=== PATIENT | female | born 1950 | race Hispanic/Latino ===

== ENCOUNTER → 2017-11-14 | Outpatient (CLI) | payer SELFPAY ==
[~2017-11-14] MED LIST: AEC81 PO; ALEN70TA47 PO; HYDR12.54 PO; LEVO125T11 PO; LISI40TA4 PO; PRAV20TA4 PO
== END | disposition home or self-care (01) ==
LOC: OIH 14:19
PROVIDERS: ATTEND Internal Medicine Cardiovascular Disease
DX: Z13.6 Encounter for screening for cardiovascular disorders (principal)
CPT/HCPCS: 75571

== ENCOUNTER → 2017-11-23 | Outpatient (CLI) | payer OTHER | END | disposition home or self-care (01) | LOC: EDUNIT# 09:30 → SHCH 10:03 | PROVIDERS: ATTEND Internal Medicine Cardiovascular Disease | DX: I10 Essential (primary) hypertension (principal); E78.5 Hyperlipidemia, unspecified | CPT/HCPCS: 93306 ==

== ENCOUNTER 2017-12-19 07:14 | Day surgery (SDC) | payer OTHER ==
[~2017-12-19] VITALS: Ht 149.9 cm; Wt 104.6 kg
[~2017-12-19 07:14] MED LIST changes: -AEC81 PO; -ALEN70TA47 PO; -HYDR12.54 PO; -LEVO125T11 PO; -LISI40TA4 PO; -PRAV20TA4 PO; +SODIUM CHLORIDE 0.9% 1000ML 1,000 ML IV ONE
[2017-12-19 07:21] VITALS: BP 143/76
[2017-12-19] MEDS ORDERED: ALEN70TA47 PO (08:15)
[2017-12-19] MEDS ORDERED: LEVO125T11 PO (08:15)
[2017-12-19] MEDS ORDERED: PRAV20TA4 PO (08:15)
[2017-12-19] MEDS ORDERED: HYDR12.54 PO (08:15)
[2017-12-19] MEDS ORDERED: LISI40TA4 PO (08:15)
[2017-12-19] MEDS ORDERED: AEC81 PO (08:15)
[2017-12-19] MEDS ORDERED: PROPOFOL 10 MG/ML 20ML VIAL IV ONE ×2 (08:32→08:33)
[2017-12-19] MEDS ORDERED: PHENYLEPHRINE HCL 10 MG/ML 1ML VIAL IV ONE (08:49)
[2017-12-19 08:54] VITALS: BP 99/52
== END 2017-12-19 09:21 | disposition home or self-care (01) ==
LOC: DAH 07:14
PROVIDERS: ATTEND Internal Medicine Gastroenterology
DX: Z12.11 Encounter for screening for malignant neoplasm of colon (principal); D12.3 Benign neoplasm of transverse colon; I10 Essential (primary) hypertension; Z79.899 Other long term (current) drug therapy; E78.4 Other hyperlipidemia; E03.8 Other specified hypothyroidism; F32.89 Other specified depressive episodes; Z90.49 Acquired absence of other specified parts of digestive tract
CPT/HCPCS: 45380; 88305; 93005; A4606; J2370; J2704 ×2; J7030

== ENCOUNTER → 2018-01-01 | Outpatient (CLI) | payer OTHER ==
[~2018-01-01] MED LIST changes: +AEC81 PO; +ALEN70TA47 PO; +HYDR12.54 PO; +LEVO125T11 PO; +LISI40TA4 PO; +PRAV20TA4 PO; -SODIUM CHLORIDE 0.9% 1000ML 1,000 ML IV ONE
== END | disposition home or self-care (01) ==
LOC: RAH 15:13
PROVIDERS: ATTEND Internal Medicine
DX: M79.641 Pain in right hand (principal); W54.0XXA Bitten by dog, initial encounter; Y93.89 Activity, other specified; Y92.89 Other specified places as the place of occurrence of the external cause; Y99.8 Other external cause status
CPT/HCPCS: 73130

== ENCOUNTER → 2020-01-29 | Outpatient (CLI) | payer OTHER ==
[~2020-01-29] MED LIST changes: +ACET1TAB12 PO; -AEC81 PO; -ALEN70TA47 PO
== END | disposition home or self-care (01) ==
LOC: SHCH 08:26
PROVIDERS: ATTEND Internal Medicine Cardiovascular Disease
DX: I87.2 Venous insufficiency (chronic) (peripheral) (principal)
CPT/HCPCS: 93970

== ENCOUNTER → 2020-08-04 | Outpatient (CLI) | payer OTHER | END | disposition home or self-care (01) | LOC: OIH 13:38 | PROVIDERS: ATTEND Nurse Practitioner Family | DX: M54.5 Low back pain (principal) | CPT/HCPCS: 72100; 72220 ==

== ENCOUNTER → 2020-08-05 | Outpatient (CLI) | payer OTHER | END | disposition home or self-care (01) | LOC: RAH 10:56 | PROVIDERS: ATTEND Internal Medicine | DX: I83.892 Varicose veins of left lower extremity with other complications (principal) | CPT/HCPCS: 93971 ==

== ENCOUNTER → 2021-01-15 | Outpatient (CLI) | payer OTHER ==
[~2021-01-15] MED LIST changes: -LISI40TA4 PO; +LISI40TA9 PO
== END | disposition home or self-care (01) ==
LOC: RAH 10:32
PROVIDERS: ATTEND Internal Medicine
DX: E04.1 Nontoxic single thyroid nodule (principal)
CPT/HCPCS: 76536

== ENCOUNTER → 2022-11-25 | Outpatient (CLI) | payer OTHER | END | disposition home or self-care (01) | LOC: RAH 15:54 | PROVIDERS: ATTEND Internal Medicine | DX: S29.9XXA Unspecified injury of thorax, initial encounter (principal); X58.XXXA Exposure to other specified factors, initial encounter; Y93.89 Activity, other specified; Y92.89 Other specified places as the place of occurrence of the external cause; Y99.8 Other external cause status | CPT/HCPCS: 71046; 71100 ==

== ENCOUNTER → 2023-06-29 | Outpatient (CLI) | payer OTHER | END | disposition home or self-care (01) | LOC: RAH 16:06 | DX: M17.0 Bilateral primary osteoarthritis of knee (principal); M79.89 Other specified soft tissue disorders; W19.XXXA Unspecified fall, initial encounter; Y93.89 Activity, other specified; Y92.89 Other specified places as the place of occurrence of the external cause; Y99.8 Other external cause status | CPT/HCPCS: 73562 ==

== ENCOUNTER → 2023-07-12 | Outpatient (CLI) | payer OTHER | END | disposition home or self-care (01) | LOC: RAH 16:16 | PROVIDERS: ATTEND Nurse Practitioner Family | DX: M16.12 Unilateral primary osteoarthritis, left hip (principal); M79.605 Pain in left leg; W45.8XXA Other foreign body or object entering through skin, initial encounter; Y93.89 Activity, other specified; Y92.89 Other specified places as the place of occurrence of the external cause; Y99.8 Other external cause status | CPT/HCPCS: 73502; 73552 ==

== ENCOUNTER 2024-04-11 12:01 | Emergency (ER) | payer OTHER ==
[~2024-04-11] VITALS: Ht 149.9 cm; Wt 111.6 kg
[2024-04-11 13:12] LABS: ADD UA MICROSCOPIC YES; APPEARANCE,URINE CLEAR (CLEAR); BILIRUBIN,URINE NEGATIVE (NEGATIVE); COLOR,URINE COLORLESS (YELLOW); GLUCOSE, URINE (UA) NEGATIVE (NEGATIVE); KETONES,URINE NEGATIVE (NEGATIVE); LEUKOCYTE ESTERASE ,URINE NEGATIVE Leu/uL (NEGATIVE); NITRATE,URINE NEGATIVE (NEGATIVE); PROTEIN,URINE NEGATIVE (NEGATIVE); UROBILINOGEN,URINE 0.2 mg/dL (0.2-1.0)
[2024-04-11 13:17] LABS: MUCUS,URINE RARE LPF (None Seen); SQUAMOUS EPITHELIAL CELL,UR RARE /HPF (0-2); WBC,URINE 0-1 /HPF (0-1)
[2024-04-11 13:25] LABS: BASOPHILS # (AUTO) 0.04 K/uL (0.00-0.20); BASOPHILS % (AUTO) 0.4 % (0.0-5.0); EOSINOPHILS # (AUTO) 0.01 K/uL (0.00-0.70); EOSINOPHILS % (AUTO) 0.1 % (0.0-8.0); HEMATOCRIT 38.1 % (36-48); IMMATURE GRANULOCYTE ABSOLUTE 0.04 K/uL (0-1); LYMPHOCYTES # (AUTO) 2.1 K/uL (1.0-4.8); LYMPHOCYTES % (AUTO) 20.3 % (21.0-51.0); MEAN CORPUSCULAR HEMOGLOBIN 26.7 pg (27.0-33.0); MEAN CORPUSCULAR HGB CONC 32.3 g/dL (32.0-36.0); MEAN CORPUSCULAR VOLUME 82.6 fL (79-99); MONOCYTES # (AUTO) 0.6 K/uL (0.1-1.0); MONOCYTES % (AUTO) 5.6 % (3.0-13.0); NEUTROPHILS # (AUTO) 7.4 K/uL (1.8-7.7); NEUTROPHILS % (AUTO) 73.2 % (40.0-77.0); PLATELET COUNT (AUTO) 428 K/uL (130-400); RED BLOOD CELL COUNT(AUTO) 4.61 MIL/uL (4.00-5.50); RED CELL DISTRIBUTION WIDTH 15.2 % (11.0-15.5); WHITE BLOOD COUNT (AUTO) 10.1 K/uL (4.8-10.8)
[2024-04-11 13:32] LABS: CREATININE 0.7 mg/dL (0.5-1.0); POTASSIUM 3.4 mmol/L (3.5-5.1)
[2024-04-11 13:37] LABS: ALBUMIN 3.2 g/dL (3.5-5.0); BILIRUBIN,TOTAL 0.4 mg/dL (0.2-1.0); TOTAL PROTEIN, SERUM 7.2 g/dL (6.0-8.3)
[2024-04-11 14:31] LABS: B-TYPE NATRIURETIC PEPTIDE 13 pg/mL (0-100)
[2024-04-11 15:03] VITALS: BP 151/71; PULSE 78; RESP 20; O2SAT 100
== END 2024-04-11 15:05 | disposition home or self-care (01) ==
LOC: EDH 12:01
DX: R07.89 Other chest pain (principal); E11.9 Type 2 diabetes mellitus without complications; E78.00 Pure hypercholesterolemia, unspecified; I10 Essential (primary) hypertension; E03.9 Hypothyroidism, unspecified; Z79.899 Other long term (current) drug therapy; Z90.49 Acquired absence of other specified parts of digestive tract; Z98.890 Other specified postprocedural states
CPT/HCPCS: 36415; 71045; 80053; 81001; 83880; 84484; 85025; 93005

== ENCOUNTER → 2025-02-13 | Outpatient (CLI) | payer OTHER ==
[~2025-02-13] MED LIST changes: +LISI40TA15 PO; -LISI40TA9 PO; -PRAV20TA4 PO; +PRAV20TA59 PO
--- NOTE | 2025-02-13 11:07 | HMCIMG ---
Exam Type: SHOULDER COMP 2+VWS RT Clinical Information: PAIN IN RIGHT SHOULDER Comparison: None FINDINGS: The examination is unremarkable. Specifically, the glenohumeral and acromioclavicular joints are preserved. Visualized portions of the humerus, the scapula, and the clavicle as well as the upper ribcage are unremarkable. No pulmonary pathology is noted in the visualized portions of the upper lobe. The soft tissues are preserved. There are no other gross abnormalities. IMPRESSION: NORMAL EXAMINATION.
== END | disposition home or self-care (01) ==
LOC: RAH 10:35
PROVIDERS: ATTEND Internal Medicine
DX: M25.511 Pain in right shoulder (principal)
CPT/HCPCS: 73030

== ENCOUNTER → 2025-03-27 | Outpatient (CLI) | payer OTHER ==
--- NOTE | 2025-03-28 09:17 | HMCIMG ---
EXAM: MR Right shoulder without contrast. CLINICAL HISTORY: Pain. TECHNIQUE: Multisequence, multiplanar magnetic resonance images of the right shoulder without intravenous contrast. CONTRAST: None. COMPARISON: None provided. FINDINGS: Moderate acromioclavicular arthropathy with type III acromion process and a large anteroinferior subacromial spur. Reduced acromiohumeral interspace measures up to 6 mm. There is a large full-thickness full width rotator cuff tear, involving the humeral insertion of the supraspinatus and infraspinatus tendons, the defect measures about 3.6 cm anterior posteriorly and 3.5 cm transversely. Moderate to severe fatty atrophy of the supraspinatus and infraspinatus muscles. Diffuse myotendinous edema involving the infraspinatus. Chronic partial tear, tendinosis, and fibrosis in the subscapularis tendon. Intact teres minor tendon. Mild glenohumeral joint osteoarthritis. Intact glenoid labrum. The lamar segment and extra-articular segment of the long head of the biceps tendon are not visualized, likely completely torn and distally retracted. The superior glenoid attachment and intra-articular segment of the long head of the biceps tendon are visualized. No acute fracture. Mild marrow edema and degenerative cystic changes around the acromioclavicular joint. Small to moderate fluid within the glenohumeral joint that continues to the subacromial-subdeltoid bursa through the rotator cuff defect as well as to the subcoracoid bursa. Heterogeneous signal surrounding the rotator cuff interval, concerning chronic adhesive capsulitis. Grossly intact intrinsic ligaments. The deltoid and lateral surrounding soft tissues are within normal limits. IMPRESSION: Chronic rotator cuff impingement with a large full-thickness rotator cuff tear involving supraspinatus and infraspinatus tendons, with moderate to severe fatty atrophy of the corresponding muscles. Diffuse myotendinous edema in the infraspinatus. Chronic partial tear, tendinosis, and fibrosis in the subscapularis tendon. Presumed Long head biceps tendon tear with distal retraction. Chronic adhesive capsulitis. /[place]
== END | disposition home or self-care (01) ==
LOC: RAH 09:14
PROVIDERS: ATTEND Internal Medicine
DX: M75.121 Complete rotator cuff tear or rupture of right shoulder, not specified as traumatic (principal); M19.011 Primary osteoarthritis, right shoulder; M75.01 Adhesive capsulitis of right shoulder; M25.411 Effusion, right shoulder; M25.811 Other specified joint disorders, right shoulder; M77.8 Other enthesopathies, not elsewhere classified; M67.813 Other specified disorders of tendon, right shoulder; M25.511 Pain in right shoulder
CPT/HCPCS: 73221